=== PATIENT | male | born 1965 | race Caucasian/White ===

== ENCOUNTER 2016-11-08 15:57 | Emergency (ER) | payer OTHER ==
[~2016-11-08] VITALS: Ht 175.3 cm; Wt 78.6 kg
[2016-11-08 16:00] VITALS: TEMP 98.3
[2016-11-08] MEDS ORDERED: MOTRIN 800800 MG/TAB PO (18:10)
[2016-11-08] MEDS ORDERED: NORCO 325 MG-51 TAB PO (18:10)
[2016-11-08 21:18] VITALS: BP 147/84; PULSE 88
== END 2016-11-08 21:19 | disposition home or self-care (01) ==
LOC: COL.ER 15:57
DX: S22.089A Unspecified fracture of T11-T12 vertebra, initial encounter for closed fracture (principal); S13.9XXA Sprain of joints and ligaments of unspecified parts of neck, initial encounter; S33.9XXA Sprain of unspecified parts of lumbar spine and pelvis, initial encounter; S50.12XA Contusion of left forearm, initial encounter; S40.022A Contusion of left upper arm, initial encounter; Z98.890 Other specified postprocedural states; W20.8XXA Other cause of strike by thrown, projected or falling object, initial encounter; Y92.009 Unspecified place in unspecified non-institutional (private) residence as the place of occurrence of the external cause

== ENCOUNTER → 2017-01-28 | Outpatient (CLI) | payer OTHER ==
[~2017-01-28] MED LIST: MOTRIN 800800 MG/TAB PO; NORCO 325 MG-51 TAB PO
== END ==
LOC: COL.RAD 08:43
DX: S22.080A Wedge compression fracture of T11-T12 vertebra, initial encounter for closed fracture (principal)